=== PATIENT | male | born 1975 | race Caucasian/White ===

== ENCOUNTER → 2017-02-05 | Outpatient (CLI) | payer OTHER ==
[~2017-02-05] MED LIST: AUGMENTIN 875-1 EACH PO; AUGMENTIN 875875 MG PO; BUPROPION XL300 MG PO; CIPROFLOXACIN500 M1 PO; DAPSONE25 MG PO; FLAGYL500 MG PO; FOLBIC RF TABL1 EACH; FOLIC ACID; FOLIC ACID1 MG PO; HYDROCODONE-AP1 EAC6 PO; KENALOG-4040 MG/ML IJ; LEXAPRO20 MG PO; NORCO 5-325 TA1 EACH PO; NOVOLOG100 UNIT/1 SQ; ONDANSETRON HCL4 M2 PO; PERCOCET 5-3251 EACH PO; PIPERACIL-TAZO4.5 GM IV; PREDNISONE 10 M10 M1 PO; PROTONIX40 M2 PO; REMICADE 1100 MG/VIA IV; TEMOVATE15 GM TP; TRAMADOL 50 MG50 MG PO; VENLAFAXIN75 MG/1 T2 PO; VITAMIN B-1000 MCG/2 SUBLING; VITAMIN B-12500 MCG IM; ZOFRAN4 MG PO; ZOSYN 3.373.375 GM/1 IV; [UNRECOGNIZED DRUG - OTHER]
== END ==
LOC: RAD 09:35
DX: J11.1 Influenza due to unidentified influenza virus with other respiratory manifestations (principal); J18.9 Pneumonia, unspecified organism; R06.02 Shortness of breath; J98.11 Atelectasis

== ENCOUNTER → 2017-09-28 | Outpatient (CLI) | payer OTHER | LOC: RAD 11:12 | DX: R05 Cough (principal); K50.90 Crohn's disease, unspecified, without complications ==